=== PATIENT | female | born 1945 | race Caucasian/White ===

== ENCOUNTER 2020-03-23 19:57 | Emergency (ER) | payer OTHER, MEDICARE, SELFPAY ==
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
[2020-03-23 20:04] VITALS: BP 121/63; PULSE 70; RESP 16; TEMP 36.9; O2SAT 99
--- NOTE | 2020-03-23 20:23 | ECG_ITS ---
Measurements Intervals [place] Rate: 66 P: 67 MA: 189 QRS: 68 QRSD: 85 T: 57 QT: 403 QTc: 423 Interpretive Statements SINUS RHYTHM POSSIBLE LEFT ATRIAL ENLARGEMENT BASELINE ARTIFACT- I, AVL BORDERLINE ECG Electronically Signed On 03-23-2020 21:28:21 CDT by Chay Dutton D.O.
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
[2020-03-23 21:55] VITALS: BP 126/71; PULSE 72; RESP 18; O2SAT 99
== END 2020-03-23 22:00 | disposition home or self-care (01) ==
PROVIDERS: Emergency Provider Emergency Medicine
DX: S20.211A Contusion of right front wall of thorax, initial encounter (principal); E78.00 Pure hypercholesterolemia, unspecified; E03.9 Hypothyroidism, unspecified; R94.31 Abnormal electrocardiogram [ECG] [EKG]; V49.00XA Driver injured in collision with unspecified motor vehicles in nontraffic accident, initial encounter
CPT/HCPCS: 71045; 93005; 99283

== ENCOUNTER 2023-08-19 11:28 | Outpatient (CLI) | payer MEDICARE, OTHER, SELFPAY ==
[2023-08-19 14:11] LABS: Hematocrit 42.5 % (37.0-47.0); Hemoglobin 13.1 g/dL (12.0-15.0); Mean Corpuscular HGB Conc 30.8 g/dl (32-36); Mean Corpuscular Volume 87.6 fl (80-100); Mean Platelet Volume 10.8 fl (7.4-10.4); Platelet Count Result 303 k/mm3 (150-375); Red Blood Count 4.85 M/mm3 (4.2-5.4); Red Cell Distribution Width 15.4 % (11.5-14.5); White Blood Count 5.4 K/mm3 (4.5-10.0)
[2023-08-19 14:17] LABS: Alanine Aminotransferase 22 U/L (6-35); Albumin Level 4.2 g/dL (3.5-5.1); Alkaline Phosphatase 87 U/L (38-126); Anion Gap 10 mmol/L (8-16); Aspartate Amino Transferase 45 U/L (14-36); Bilirubin,Total 0.6 mg/dL (0.2-1.3); Blood Urea Nitrogen 12 mg/dL (7-17); Calcium 9.3 mg/dL (8.4-10.2); Carbon Dioxide 26 mmol/L (22-30); Chloride 104 mmol/L (98-107); Estimated Glomerular Filt Rate > 60; Glucose 83 mg/dL (65-110); Magnesium 2.1 mg/dL (1.6-2.3); Phosphorus 3.4 mg/dL (2.5-4.5); Sodium 140 mmol/L (137-145)
[2023-08-19 14:26] LABS: Hemoglobin A1C 5.4 % (<5.7)
[2023-08-19 14:36] LABS: Parathyroid Intact 30.4 pg/mL (7.5-53.5)
[2023-08-19 14:44] LABS: Thyroid Stimulating Hormone 0.097 uIU/mL (0.465-4.680)
[2023-08-19 14:47] LABS: Free T4 Free Thyroxine 1.51 ng/mL (0.78-2.19); Vitamin D 25 Hydroxy 52.4 ng/mL
[2023-08-21 14:00] LABS: Albumin 4.1 g/dL (3.8-4.8); Alpha 1 Globulin 0.3 g/dL (0.2-0.3); Alpha 2 Globulin 0.8 g/dL (0.5-0.9); Beta 1 Globulin 0.5 g/dL (0.4-0.6); Gamma Globulin 0.9 g/dL (0.8-1.7)
[2023-08-22 04:17] LABS: Thyroid Peroxidase Antibodies 3 IU/mL (<9)
== END 2023-08-19 11:29 | disposition home or self-care (01) ==
LOC: ANHWCLAB 11:31
PROVIDERS: PCP Internal Medicine; Visit Provider Internal Medicine
DX: E03.9 Hypothyroidism, unspecified (principal); M81.0 Age-related osteoporosis without current pathological fracture; E78.5 Hyperlipidemia, unspecified; R73.09 Other abnormal glucose
CPT/HCPCS: 36415; 80053; 82306; 83036; 83735; 83970; 84100; 84155; 84165; 84439; 84443; 85027; 86376

== ENCOUNTER 2023-08-25 11:07 | Outpatient (RCR) | payer MEDICARE, OTHER, SELFPAY ==
[2023-08-25 14:16] LABS: Creatinine 24 Hour Urine 0.5 gm/24 (0.8-1.8); Total Volume 24 Hour Urine 1500 ml
[2023-08-28 06:41] LABS: Total Volume 1500 mL; Urine Calcium 8.5 mg/dL
== END 2023-08-25 12:00 | disposition home or self-care (01) ==
LOC: ANHWCLAB 11:07
PROVIDERS: Visit Provider Internal Medicine
DX: E03.9 Hypothyroidism, unspecified (principal); M81.0 Age-related osteoporosis without current pathological fracture; E78.5 Hyperlipidemia, unspecified
CPT/HCPCS: 81050; 82340; 82570

== ENCOUNTER → 2023-08-27 12:46 | Outpatient (CLI) | payer MEDICARE, OTHER, SELFPAY ==
--- NOTE | ~2023-08-27 | US_ITS ---
EXAMINATION: US thyroid DATE: 08/27/2023 13:42 INDICATION: Hypothyroidism. Dysphonia. TECHNIQUE: Multiple ultrasound images of the thyroid were obtained. COMPARISON: None. FINDINGS: The right thyroid lobe measures 2.4 x 1.2 x 0.8 cm. The left thyroid lobe measures 1.4 x 0.9 x 0.6 c m. There is normal echotexture and echogenicity throughout the thyroid gland. No discrete nodules id entified. Normal vascular flow is present. IMPRESSION: 1. Small thyroid. Reviewed, dictated and finalized at location A. ALT TILE FLOOR LAYER IMPRESSION: 1. Small thyroid.
== END ==
PROVIDERS: PCP Internal Medicine; Visit Provider Nurse Practitioner Family
DX: R49.0 Dysphonia (principal)
CPT/HCPCS: 76536

== ENCOUNTER 2023-08-29 13:12 | Outpatient (CLI) | payer MEDICARE, OTHER, SELFPAY ==
--- NOTE | ~2023-08-29 | DEXA_ITS ---
Bone Density Report Name: STEPHENIE RYAN Age: 78 Sex: Female Ethnicity: White Date of : 1945 Indication: postmenopausal; screening for osteoporosis; height loss; cancer; Referring Provider: RACHELMARK Study: Bone densitometry was performed. Exam Date: August 29, 2023 Accession number: [id number] Bone Density: Region BMD T-score Z-score Classification AP Spine(L1-L4) 0.932 -1.0 1.6 Normal Femoral Neck (Left) 0.726 -1.1 1.2 Osteopenia Total Hip (Left) 0.869 -0.6 1.4 Normal Femoral Neck (Right) 0.677 -1.6 0.7 Osteopenia Total Hip (Right) 0.820 -1.0 1.0 Normal Total Hip Mean 0.845 -0.8 1.2 Normal World Health Organization criteria for BMD impression classify patients as: Normal (T-score at or above -1.0), Osteopenia (T-score between -1.0 and -2.5), or Osteoporosis (T-score at or below -2.5). 10-year Fracture Risk: FRAX not reported because: Treated for osteoporosis Clinical Information Provided by Patient: Is being treated for osteoporosis Has used the following medications: Vitamin D, Calcium Has the following medical conditions: Cancer Patient maximum height was 62 Menopause Age: 49 No regular weight bearing exercise Does not regularly consume dairy products Drinks caffeinated beverages Onset of menses at age 11 Number of children 2 Impression: The patient has low bone mass, based on the Right Femoral Neck T-score. Discussion: It is important to ask patients whether they are taking their medications and to encourage continued and appropriate compliance with their osteoporosis therapies to reduce fracture risk. It is also important to review their risk factors and encourage appropriate calcium and vitamin D intakes, exercise, fall prevention and other lifestyle measures. Follow-Up: Consider a repeat BMD and Vertebral Fracture Assessment (VFA) exam in 2 years or sooner if medically necessary, to reassess this patient's status. Reported by: [facility] on 08/29/2023 1:39:00 PM. Reviewed, dictated and finalized at location APrem BAEZ
== END 2023-08-29 13:13 | disposition home or self-care (01) ==
LOC: ANHIMG 13:14
PROVIDERS: PCP Internal Medicine; Visit Provider Internal Medicine
DX: M81.0 Age-related osteoporosis without current pathological fracture (principal); M85.852 Other specified disorders of bone density and structure, left thigh; M85.851 Other specified disorders of bone density and structure, right thigh
CPT/HCPCS: 77080

== ENCOUNTER 2024-03-15 09:46 | Outpatient (CLI) | payer MEDICARE, OTHER, SELFPAY ==
[2024-03-15 11:03] LABS: Thyroid Stimulating Hormone 0.659 uIU/mL (0.465-4.680)
[2024-03-15 11:19] LABS: Free T4 Free Thyroxine 1.21 ng/mL (0.78-2.19); Vitamin D 25 Hydroxy 65.6 ng/mL
== END 2024-03-15 09:47 | disposition home or self-care (01) ==
LOC: ANHLAB 09:50
PROVIDERS: PCP Internal Medicine; Visit Provider Internal Medicine
DX: E11.9 Type 2 diabetes mellitus without complications (principal); M81.0 Age-related osteoporosis without current pathological fracture; E03.9 Hypothyroidism, unspecified
CPT/HCPCS: 36415; 82306; 84439; 84443

== ENCOUNTER 2024-04-12 13:47 | Outpatient (CLI) | payer MEDICARE, OTHER, SELFPAY ==
--- NOTE | ~2024-04-12 | MM_ITS ---
EXAMINATION: MM screening [facility] BI w aren HISTORY: Screening TECHNIQUE: Craniocaudal and mediolateral oblique 3-D tomosynthesis images were obtained and synthetic 2-D images were generated. CAD analysis was submitted and interpreted. COMPARISON: No prior mammogram is available for comparison at this institution. BREAST PARENCHYMAL COMPOSITION: Not dense: There are scattered areas of fibroglandular density. FINDINGS: There are dystrophic changes and architectural distortion in the upper central aspect of th e left breast, consistent with previous lumpectomy and radiation therapy. There is no evidence of shaheen picious mass, calcification, or architectural distortion to suggest malignancy in either breast. Ther e has been no suspicious interval change. IMPRESSION: 1. No mammographic evidence of malignancy. 2. Recommend routine screening mammography in one year. BI-RADS Category 2: Benign finding(s). Reviewed, dictated and finalized at location B.
== END 2024-04-12 13:48 | disposition home or self-care (01) ==
LOC: ANHIMG 13:50
PROVIDERS: PCP Internal Medicine; Visit Provider Nurse Practitioner
DX: Z12.31 Encounter for screening mammogram for malignant neoplasm of breast (principal)
CPT/HCPCS: 77063; 77067

== ENCOUNTER 2024-12-09 08:11 | Outpatient (CLI) | payer MEDICARE, OTHER, SELFPAY ==
[2024-12-09 09:12] LABS: Thyroid Stimulating Hormone 0.531 uIU/mL (0.465-4.680)
[2024-12-09 09:48] LABS: Free T4 Free Thyroxine 1.11 ng/dL (0.78-2.19)
== END 2024-12-09 08:12 | disposition home or self-care (01) ==
PROVIDERS: PCP Internal Medicine; Visit Provider Internal Medicine
DX: E11.9 Type 2 diabetes mellitus without complications (principal)
CPT/HCPCS: 36415; 84439; 84443

== ENCOUNTER 2025-07-01 09:02 | Outpatient (CLI) | payer MEDICARE, OTHER, SELFPAY ==
--- NOTE | ~2025-07-01 | MM_ITS ---
EXAMINATION: MM screening [facility] BI w aren HISTORY: Screening TECHNIQUE: Craniocaudal and mediolateral oblique 3-D tomosynthesis images were obtained and synthetic 2-D images were generated. CAD analysis was submitted and interpreted. COMPARISON: 04/12/2024 BREAST PARENCHYMAL COMPOSITION: Not dense: There are scattered areas of fibroglandular density. FINDINGS: Stable architectural distortion left breast consistent with previous lumpectomy for malignancy. There is no evidence of suspicious mass, calcification, or architectural distortion to suggest malignancy in either breast. There has been no suspicious interval change. IMPRESSION: 1. No mammographic evidence of malignancy. 2. Recommend routine screening mammography in one year. BI-RADS Category 2: Benign finding(s). Reviewed, dictated and finalized at location B. [employer]
== END 2025-07-01 09:03 | disposition home or self-care (01) ==
LOC: ANHFOHIMG 09:04
PROVIDERS: PCP Internal Medicine; Visit Provider Internal Medicine
DX: Z12.31 Encounter for screening mammogram for malignant neoplasm of breast (principal)
CPT/HCPCS: 77063; 77067